=== PATIENT | female | born 1975 | race Caucasian/White ===

== ENCOUNTER 2016-10-15 08:09 | Emergency (ER) | payer BC | END 2016-10-15 09:17 | disposition home or self-care (01) | LOC: ER 08:09 | DX: R51 Headache (principal); Z90.710 Acquired absence of both cervix and uterus; Z88.8 Allergy status to other drugs, medicaments and biological substances; Z88.1 Allergy status to other antibiotic agents | CPT/HCPCS: 70450; 99284; A9270-GY ==